=== PATIENT | male | born 1975 | race African-American/Black ===

== ENCOUNTER 2018-08-18 22:24 | Emergency (ER) | payer OTHER ==
[~2018-08-18] VITALS: Ht 177.8 cm; Wt 86.2 kg
[~2018-08-18 22:24] MED LIST: TRAMADOL HCL-AP1 TAB PO
[2018-08-19] MEDS ORDERED: DUI500 PO (02:24)
== END 2018-08-19 02:42 ==
LOC: ER 22:24
DX: S01.01XA Laceration without foreign body of scalp, initial encounter (principal); W22.8XXA Striking against or struck by other objects, initial encounter; Y93.89 Activity, other specified; Y92.89 Other specified places as the place of occurrence of the external cause; Y99.8 Other external cause status; R21 Rash and other nonspecific skin eruption

== ENCOUNTER 2020-02-28 19:12 | Emergency (ER) | payer OTHER ==
[~2020-02-28] VITALS: Ht 175.3 cm; Wt 86.2 kg
[~2020-02-28 19:12] MED LIST changes: +DUI500 PO
== END 2020-02-28 21:32 | disposition home or self-care (01) ==
LOC: ER 19:12
DX: M25.512 Pain in left shoulder (principal); M54.2 Cervicalgia

== ENCOUNTER 2020-02-29 20:00 | Emergency (ER) | payer OTHER ==
[~2020-02-29] VITALS: Ht 175.3 cm; Wt 86.2 kg
== END 2020-02-29 20:31 | disposition home or self-care (01) ==
LOC: ER 20:00
DX: M94.0 Chondrocostal junction syndrome [Tietze] (principal)

== ENCOUNTER 2020-09-17 22:46 | Emergency (ER) | payer OTHER ==
[~2020-09-17] VITALS: Ht 172.7 cm; Wt 86.2 kg
[2020-09-17] MEDS ORDERED: NORFLEX100MG PO (23:36)
[2020-09-17] MEDS ORDERED: DICLOFENAC SODI75 MG PO (23:36)
== END 2020-09-18 00:28 | disposition home or self-care (01) ==
LOC: ER 22:46
DX: M43.6 Torticollis (principal)

== ENCOUNTER → 2021-02-19 | Emergency (ER) | payer OTHER ==
[~2021-02-19] VITALS: Ht 175.3 cm; Wt 86.2 kg
[~2021-02-19] MED LIST changes: +DICLOFENAC SODI75 MG PO; +NORFLEX100MG PO
== END | disposition home or self-care (01) ==
LOC: ER 21:30
DX: M79.671 Pain in right foot (principal); G89.11 Acute pain due to trauma